=== PATIENT | female | born 1970 | race Caucasian/White ===

== ENCOUNTER 2018-03-05 20:03 | Emergency (ER) | payer OTHER ==
[2018-03-05] MEDS ORDERED: PROPARACAINE HCL OPTH 15ML BTL OPTH ONE (20:17)
--- NOTE | 2018-03-05 20:20 | Emergency Department Record ---
History of Present Illness - General Chief complaint: Eye Problem Stated complaint: POOL ACID IN EYES Time Seen by Provider: 03/05/18 20:10 Source: Patient Mode of Arrival: Ambulatory Limitations: No limitations Travel/Exposure to [facility] Within 21 Days of Symptoms: No - History of Present Illness Initial comments: The patient accidentally had some pool [employer]ge[employer] guard (ammonium chloride) splash into the R eye 4 hours ago. She did flush the eye and did contact poison control. There was no pain after but now the R eye is becoming mildly irritated. MD chief complaint: Eye pain Onset/Timin -: Hour(s) Onset Description: Sudden Location: Right eye Place: Home If Injury: Chemical exposure Eye Symptoms: Burning, Discharge, Foreign body sensation, Pain, Redness Severity: Moderate Severity scale (1-10): 4 If Pain, Quality: Burning Consistency: Constant Context: Injury, Trauma Associated Symptoms: None Treatments Prior to Arrival: Irrigated eye - Related Data Hx Tetanus Toxoid Vaccination: Yes Allergies Allergy/AdvReac Type Severity Reaction Status Date / Time No Known Drug Allergies Allergy Verified 03/05/18 20:07 Travel Screening - Travel/Exposure Within Last 30 Days Have you traveled within the last 30 days?: No - Travel/Exposure Within Last Year Have you traveled outside the [place] in the last year?: No - Additonal Travel Details Have you been exposed to anyone with a communicable illness?: No - Travel Symptoms Symptom Screening: None Past Medical History - SOCIAL HISTORY Smoking Status: Current every day smoker Alcohol Use: Occasional Drug Use: None - RESPIRATORY Hx Respiratory Disorders: No - CARDIOVASCULAR Hx Cardio Disorders: No - NEURO Hx Neuro Disorders: No - GI Hx GI Disorders: No - Hx Genitourinary Disorders: No - ENDOCRINE Hx Endocrine Disorders: No - MUSCULOSKELETAL Hx Musculoskeletal Disorders: No - PSYCH Hx Psych Problems: No - HEMATOLOGY/ONCOLOGY Hx Hematology/Oncology Disorders: No Family Medical History Any Significant Family History?: No Hx Diabetes: Mother Physical Exam - General General Appearance: Alert, Cooperative, No acute distress - Head Head exam: Atraumatic, Normocephalic, Normal inspection - Eye Eye exam: PERRL, Conjunctival injection (Mild R eye.), Other (There is flourescein uptake just medial to the R cornea over the sclera. The cornea is clear.). negative: Normal appearance, Periorbital swelling, Periorbital tenderness Visual acuity (L) = 20/: 50 Visual acuity (R) = 20/: 50 With correction: No (Normal) Image of Eyes: 1 - Area of uptake. - ENT ENT exam: Normal exam, Mucous membranes moist, Normal external ear exam, Normal orophraynx, TM's normal bilaterally Course Vital Signs 03/05/18 20:09 Temperature 98.3 F Pulse Rate [ 80 Pulse Ox Probe] Respiratory 18 Rate Blood Pressure 145/96 [Left Arm] Pulse Ox 98 - Reevaluation(s) Reevaluation #1: I did discuss the need to continue the Abx ointment and see her eye doctor on Thursday if not better. 03/05/18 20:40 Disposition Disposition: Discharge Clinical Impression: Chemical exposure of eye Disposition: Home, Self-Care Condition: (2) Stable Instructions: Corneal Abrasion (ED) Additional Instructions: Please use the Emycin opthalmic ointment to the R eye 4 times a day for 5 days. Take Tylenol or Motrin for pain and please see your eye doctor on Thursday if not better. Forms: Patient Portal Access Time of Disposition: 20:41 Quality - Quality Measures Quality Measures: N/A - Blood Pressure Screening View Details: Yes Does Patient Have Any of the Following: No Blood Pressure Classification: Normal BP Reading Systolic Measurement: 119 Diastolic Measurement: 76 Screening for High Blood Pressure: < Normal BP, F/U Not Required > [[id number]]
[2018-03-05] MEDS ORDERED: ERYTHROMYCIN OPTH OINT 3.5GM OPTH ONE (20:25)
== END 2018-03-05 20:52 | disposition home or self-care (01) ==
LOC: ER 20:03
DX: T50.991A Poisoning by other drugs, medicaments and biological substances, accidental (unintentional), initial encounter (principal); T26.61XA Corrosion of cornea and conjunctival sac, right eye, initial encounter; Y92.009 Unspecified place in unspecified non-institutional (private) residence as the place of occurrence of the external cause; F17.210 Nicotine dependence, cigarettes, uncomplicated
CPT/HCPCS: 99282